=== PATIENT | male | born 1990 | race Asian ===

== ENCOUNTER 2020-01-02 07:40 | Emergency (ER) | payer SELFPAY ==
[~2020-01-02] VITALS: Ht 180.3 cm; Wt 108.0 kg
--- NOTE | 2020-01-02 07:47 | NUR ---
Woke up this am with redness R eye +itch/pain", to er bed 1, awaiting md mendosa. kept comfortable.
[2020-01-02] MEDS ORDERED: FLUORESCEIN SODIUM OPHTH 1 EA STRIP ONE (07:49)
--- NOTE | 2020-01-02 07:54 | NUR ---
DR WILLIS AT BEDSIDE
--- NOTE | 2020-01-02 08:26 | NUR ---
Patient discharged to home in stable condition. Written and verbal after care instructions given. Patient verbalizes understanding of instruction.
[2020-01-02 08:27] VITALS: BP 142/88
== END 2020-01-02 08:27 | disposition home or self-care (01) ==
LOC: ER 07:46
DX: H10.9 Unspecified conjunctivitis (principal)

== ENCOUNTER 2020-01-23 09:37 | Emergency (ER) | payer OTHER ==
[~2020-01-23] VITALS: Ht 185.4 cm; Wt 99.8 kg
[2020-01-23 09:51] VITALS: BP 119/75
== END 2020-01-23 10:35 | disposition home or self-care (01) ==
LOC: ER 09:40
DX: R50.9 Fever, unspecified (principal); J02.9 Acute pharyngitis, unspecified; R09.81 Nasal congestion; Z20.828 Contact with and (suspected) exposure to other viral communicable diseases